=== PATIENT | male | born 1950 | race Caucasian/White ===

== ENCOUNTER → 2018-01-29 | Outpatient (CLI) | payer BC, MEDICARE ==
[~2018-01-29] MED LIST: ? B/P MED; ATIVAN0.5 MG PO; COMPAZINE10 MG PO; ENOXAPARIN30 MG/0.3; ERYTHROMYCIN E3.5 G1 OP; FLOMAX0.4 MG PO; HYDROCODONE-APA1 TA1 PO; NAPROXEN500 MG PO; NORCO 5-325 TA1 EACH PO; NORVASC5 MG PO; NYSTATIN 1100000 U/M SWISH&SPIT; ONDANSETRON HCL4 M2 PO; PEPCID20 MG PERTUBE; PROMETHAZI6.25 MG/5 PERTUBE; QUINAPRIL HCL20 MG PO
--- NOTE | 2018-02-09 21:39 | ONC ---
[place] [address] RADIATION ONCOLOGY NOTE Name: DESIREORA Tone Room: [facility]#: [id number] Admission: 01/29/18 Attend Phys: Jarett Hodge MD Discharge: Date of : 50 Report #: [id number] THIS REPORT FOR: //name// CC: Yonny Rosario MD DATE OF PROCEDURE: 01/29/2018 REFERRING PHYSICIANS: Include: 1. Nataliia Dumont. 2. Ismael Valadez DO 3. Yonny Soto MD 4. Dr. Quevedo. 5. Kulwinder Valencia DO [facility] phone is [phone]. PRIMARY SITE AND HISTOPATHOLOGY: The patient received chemoradiotherapy for a stage SALVADOR base of tongue cancer. The patient completed radiation therapy on 09/14/2016. PROCEDURE: Nasopharyngolaryngoscopy. FINDINGS: On nasopharyngolaryngoscopy, after administration of a small amount of 2% viscous lidocaine orally and 2% viscous lidocaine via the right nostril using a cotton swab, there were no visible lesions in the nasopharynx and no visible lesions in the posterior oropharynx. There were no visible lesions involving the base of tongue. The true vocal cords were normally mobile bilaterally without any visible lesions. There was no evidence of head and neck cancer. Thank you for allowing me to participate in the care of this patient. <ELECTRONICALLY SIGNED> By: Jarett Hodge MD 02/09/18 2139 1121 1330Jarett Hodge MD /nt
--- NOTE | 2018-02-09 22:28 | ONC ---
[place] [address] RADIATION ONCOLOGY NOTE Name: ORA PHIPPS Room: [facility]#: [id number] Admission: 01/29/18 Attend Phys: Jarett Hodge MD Discharge: Date of : 50 Report #: [id number] THIS REPORT FOR: //name// CC: Dr. Jarett Rosario MD DATE OF SERVICE: 01/29/2018 REFERRING PHYSICIANS: Include Yonny Soto MD; Josh Quevedo DMD; Kulwinder Valencia DO; Ismael Valadez MD; and Nataliia Dumont MD. [facility] phone is [phone]. PRIMARY SITE AND HISTOPATHOLOGY: The patient received chemoradiotherapy for a stage SALVADOR base of tongue cancer and completed radiation therapy on 09/14/2016. INTERVAL NOTE: The patient felt like he was eating well. He is eating foods such as sandwiches and chicken. He does sometimes have to take more fluid with it because of the xerostomia. He sometimes bites his left cheek rarely, and that has improved. He uses [facility] for dental care. He takes pilocarpine, maybe once every 3 or 4 days. MEDICATIONS: [employer]ogel, pilocarpine, 25 mcg of levothyroxine per day and quinapril. SOCIAL HISTORY: Cigarettes, he does not smoke. REVIEW OF SYSTEMS: RESPIRATORY: The patient was not short of breath during his appointment. MUSCULOSKELETAL: He has good range of motion of his upper extremities. PHYSICAL EXAMINATION: VITAL SIGNS: The patient weighs 191 pounds on 01/29/2018, 187.6 pounds on 08/12/2017. On 01/29/2018 blood pressure was 129/85, pulse 53, respirations 20, oxygen saturation 98%. LYMPH NODES: He had no palpable cervical or supraclavicular lymphadenopathy. HEAD, EYES, EARS, NOSE AND THROAT EXAM: Mouth had no suspicious visible lesions or suspicious palpable lesions. On nasopharyngolaryngoscopy, after administration of 2% viscous lidocaine orally and 2% viscous lidocaine to the right nostril with a cotton swab, there were no visible lesions in the nasopharynx. There were no visible lesions in the posterior oropharynx. The base of tongue had no visible lesions. The true vocal cords were normally mobile bilaterally with no visible lesions. HEART: Had a regular rate and rhythm without murmur. LUNGS: [place] [address] RADIATION ONCOLOGY NOTE Name: ORA PHIPPS Room: [facility]#: [id number] Admission: 01/29/18 Attend Phys: Jarett Hodge MD Discharge: Date of : 50 Report #: [id number] clear to auscultation. LABORATORY DATA: From 11/18/2017 hemoglobin 14; platelets 166,000; white blood cell count 5.0. Sodium 140, potassium 3.8, BUN 12, creatinine 1.1. TSH 7.67, free T4 0.8. RADIOLOGIC IMAGING: Neck and chest CT on 11/18/2017 showed post-therapeutic changes in the neck. There is no evidence of thoracic metastatic disease. ASSESSMENT AND PLAN: 1. History of head and neck cancer- There is no evidence of head and neck cancer at this time. The patient is scheduled for CT scans and lab work on 06/09/[address] Dumont. He is scheduled for a follow up appointment with Dr. Dumont on 06/12/2018. The patient was asked to schedule a follow up appointment to see me around 07/2018. 2. Hypothyroidism. The patient was given a refill for 25 mcg levothyroxine, and he was given a requisition to have a TSH checked at this time and then possibly around around 05/2018. He was asked to schedule a follow up appointment with me in 07/2018. 3. Dental care- The patient was given a refill for [employer] Pro-Gel to use for his teeth. 4. Xerostomia- The patient was given a refill for pilocarpine. 5. Calcified coronary artery disease- He was referred, in the past, to his primary care physician to manage that issue. Thank you for allowing me to participate in the care of this patient. <ELECTRONICALLY SIGNED> By: Jarett Hodge MD 02/09/18 2228 1301 1533Dzaid Hodge MD /nt
== END | disposition home or self-care (01) ==
LOC: M.RTH 11-13 09:30
DX: Z85.810 Personal history of malignant neoplasm of tongue (principal); E03.9 Hypothyroidism, unspecified; K11.7 Disturbances of salivary secretion; I25.10 Atherosclerotic heart disease of native coronary artery without angina pectoris; Z79.899 Other long term (current) drug therapy; Z79.891 Long term (current) use of opiate analgesic; Z98.890 Other specified postprocedural states

== ENCOUNTER → 2018-08-06 | Outpatient (CLI) | payer BC, MEDICARE ==
--- NOTE | 2018-08-17 22:11 | PROC ---
[address] [address] PROCEDURE REPORT Name: DESIREORA Tone Room: [facility]#: [id number] Admission: 08/06/18 Attend Phys: Jarett Hodge MD Discharge: Date of : 50 Report #: [id number] THIS REPORT FOR: //name// CC: Jarett Rosario MD DATE OF PROCEDURE: 08/06/2018 REFERRING PHYSICIANS: Yonny Soto MD; Dr. Quevedo; Kulwinder Valencia DO; Ismael Valadez DO; Nataliia Dumont MD. [facility] phone is [phone]. PRIMARY SITE AND HISTOPATHOLOGY: The patient received chemoradiotherapy for a stage SALVADOR base of tongue cancer. The patient completed radiation therapy on 09/14/2016. PROCEDURE: Nasopharyngolaryngoscopy. FINDINGS: On nasopharyngolaryngoscopy, after administration of a small amount of 2% viscous lidocaine orally and 2% viscous lidocaine via the right nostril using a cotton swab, there were no visible lesions in the nasopharynx and no visible lesions in the posterior oropharynx and no visible lesions involving the base of tongue. The true vocal cords were normally mobile bilaterally without any visible lesions. There was no evidence of head and neck cancer. Thank you for allowing me to participate in the care of this patient. <ELECTRONICALLY SIGNED> By: Jarett Hodge MD 08/17/18 2211 1248 2039Jraett Hodge MD /nt
--- NOTE | 2018-08-17 22:27 | ONC ---
[place] [address] RADIATION ONCOLOGY NOTE Name: ORA PHIPPS Room: [facility]#: [id number] Admission: 08/06/18 Attend Phys: Jarett Hodge MD Discharge: Date of : 50 Report #: [id number] THIS REPORT FOR: //name// CC: Jarett Rosario MD DATE OF SERVICE: 08/06/2018 REFERRING PHYSICIANS: Include Dr. Ismael Valadez; Yonny Soto MD; Josh Quevedo DMD; Kulwinder Valencia DO; and Nataliia Dumont MD. [facility] phone is [phone]. PRIMARY SITE AND HISTOPATHOLOGY: The patient received chemoradiotherapy for a stage SALVADOR base of tongue cancer and he completed radiation therapy on 09/14/2016. INTERVAL NOTE: The patient felt like he was eating well. He has a good appetite. He tends to eat moist foods such as chicken with gravy. In the past, he has been on amoxicillin for a sinus infection. He still has issues with his bite since he sometimes bites his buccal mucosa when he chews food. He uses pilocarpine intermittently for xerostomia and uses dental care Pro-Gel fluoride gel for dental care. MEDICATIONS: Include dental care Pro-Gel, pilocarpine, levothyroxine, quinapril, and Flomax. SOCIAL HISTORY: Cigarettes: he does not smoke. REVIEW OF SYSTEMS: RESPIRATORY: The patient was not short of breath during his appointment. MUSCULOSKELETAL: He has good range of motion of his upper extremities. PHYSICAL EXAMINATION: VITAL SIGNS: The patient weighed 205.6 pounds on 08/06/2018, 191 pounds on 01/29/2018. On 08/06/2018, blood pressure 130/87, pulse 65, respirations 18, oxygen saturation 96%. LYMPH NODES: The patient had no palpable cervical or supraclavicular lymphadenopathy. HEAD, EYES, EARS, NOSE AND THROAT: Mouth had no suspicious visible lesions or suspicious palpable lesions. On nasopharyngolaryngoscopy, after administration of 2% viscous lidocaine orally and 2% viscous lidocaine to the right nostril with a cotton swab, there were no visible lesions in the nasopharynx and no visible lesions in the posterior oropharynx. The Base [place] [address] RADIATION ONCOLOGY NOTE Name: ORA PHIPPS Room: [facility]#: [id number] Admission: 08/06/18 Attend Phys: Jarett Hdoge MD Discharge: Date of : 50 Report #: [id number] True vocal cords were normally mobile bilaterally with no visible lesions. HEART: Had a regular rate and rhythm without murmur. LUNGS: were clear to auscultation. LABORATORY DATA: From 06/09/2018: Hemoglobin 14.7, platelets 152,000, white blood cell count 5.6. Sodium 138, potassium 4.0, BUN 18, creatinine 1.09 and TSH at that time was elevated at 5.31. So, his levothyroxine was increased from 25 mcg per day to 50 mcg per day. RADIOLOGIC DATA: The patient had a chest CT on 06/09/2018 and also had a neck CT and that showed no recurrent mass or lymphadenopathy or metastatic disease. ASSESSMENT AND PLAN: 1. History of head and neck cancer- There is no evidence of head and neck cancer at this time. The patient had scans ordered by his medical oncologist, Dr. Dumont, on 03/10/2019. He has an appointment with his medical oncologist on 03/12/2019 and so the patient was asked to schedule an follow up appointment with me around 04/2019 or 05/2019. 2. Hypothyroidism- The patient was given a refill for 50 mcg of levothyroxine, which was increased after his last TSH was slightly elevated and an order will be written to add the TSH to the labs that he is having on 03/10/2019. He will be asked to schedule a follow up appointment with me around 04/2019 or 05/2019. 3. Dental care- The patient was given a refill for dental care Pro-Gel fluoride gel for his teeth. 4. Xerostomia- The patient was given a refill for pilocarpine. 5. Dental bite- The patient will be referred to the dentist, Dr. Wing Yañez, to see if he has any suggestions with the patient's issues of biting on his buccal mucosa. Thank you for allowing me to participate in the care of this patient. <ELECTRONICALLY SIGNED> By: Jarett Hodge MD 08/17/18 2227 1253 2101Dzaid Hodge MD /nt
== END ==
LOC: M.RTH 01:31
DX: Z08 Encounter for follow-up examination after completed treatment for malignant neoplasm (principal); E03.9 Hypothyroidism, unspecified; K11.7 Disturbances of salivary secretion; Z85.89 Personal history of malignant neoplasm of other organs and systems

== ENCOUNTER → 2019-04-10 | Outpatient (CLI) | payer BC, MEDICARE ==
--- NOTE | ~2019-04-10 | ONC ---
[place] [address] RADIATION ONCOLOGY NOTE Name: ORA PHIPPS Room: [facility]#: [id number] Admission: 04/10/19 Attend Phys: Jarett Hodge MD Discharge: Date of : 50 Report #: [id number] THIS REPORT FOR: //name// CC: Jarett Valadez DATE OF SERVICE: 04/10/2019 REFERRING PHYSICIANS: Include Dr. Ismael Valadez, Dr. Yonny Soto, Josh Quevedo DMD; Kulwinder Valencia DO; Nataliia Dumont MD. [facility] phone is [phone]. PRIMARY SITE AND HISTOPATHOLOGY: The patient received chemoradiotherapy for stage 4A base of tongue cancer and completed radiation therapy on 09/14/2016. INTERVAL NOTE: The patient is eating a regular diet. He says he eats food such as steak and chicken. He applies the fluoride to his teeth with a brush. He takes pilocarpine periodically for xerostomia. MEDICATIONS: Include dental gel, pilocarpine, levothyroxine at 75 mcg per day, is increased from 50 mcg to 75 mcg per day on 03/10/2019, quinapril, and Flomax. SOCIAL HISTORY: Cigarettes: The patient does not smoke cigarettes. REVIEW OF SYSTEMS: RESPIRATORY: The patient was not short of breath during his appointment. MUSCULOSKELETAL: He has good range of motion of his upper extremities. PHYSICAL EXAMINATION: VITAL SIGNS: The patient weighed 214.2 pounds on 04/10/2019. He was 205.6 pounds 08/06/2018 and on 04/10/2019 blood pressure is 134/88, pulse 59, respirations 18, oxygen saturation 95%. LYMPH NODES: He had no palpable cervical or supraclavicular lymphadenopathy. HEAD, EYES, EARS, NOSE, AND THROAT: Mouth had no suspicious visible lesions or suspicious palpable lesions. On nasopharyngolaryngoscopy, after administration of 2% viscous lidocaine orally, 2% viscous lidocaine to the right nostril with a cotton swab, there were no visible lesions in the nasopharynx, no visible lesions in the posterior pharynx. The base of tongue had no visible lesions. True vocal cords were normally mobile bilaterally with no visible lesions. HEART: Had a regular rate and rhythm without murmur. LUNGS: Clear to auscultation. LABORATORY DATA: From 03/10/2019, sodium 139, potassium 4.2, BUN 20, creatinine 1.24 and hemoglobin 14, platelets 221,000, white blood cell 6.3. TSH 8.43, free T4 was 0.9, and his levothyroxine was increased to 75 mcg per day [place] [address] RADIATION ONCOLOGY NOTE Name: ORA PHIPPS Room: [facility]#: [id number] Admission: 04/10/19 Attend Phys: Jarett Hodge MD Discharge: Date of : 50 Report #: [id number] result. RADIOLOGIC DATA: From 03/10/2019, the neck showed no recurrent mass or lymphadenopathy and the chest showed no thoracic metastatic disease. He knows that he had a left perinephric hematoma, which is thought to be too low, lithotripsy had at that time. ASSESSMENT AND PLAN: 1. History of head and neck cancer. There is no evidence of head and neck cancer at this time. The patient is scheduled for comprehensive metabolic panel, complete blood count, TSH, and a neck and chest CT by his medical oncologist, Dr. Dumont on 10/09/2019; and he is scheduled to see her in 10/12/2019. The patient was asked to follow up with me may be around 11/2019. 2. Hypothyroidism. The patient's levothyroxine was increased from 50 mcg per day to 75 mcg per day since his TSH was elevated in 02/2019 and a repeat TSH was ordered in 09/2019. The patient was asked to follow up with me around November 2019. 3. Dental care. The patient was given a refill for dental gel to use for his teeth. 4. Xerostomia. The patient was given a refill for pilocarpine. Thank you for allowing me to participate in the care of this patient. By: 1609 [id number] Hodge MD /earnestine
--- NOTE | ~2019-04-10 | ONC ---
[address] [address] RADIATION ONCOLOGY NOTE Name: DESIREORA JOE Room: [facility]#: [id number] Admission: 04/10/19 Attend Phys: Jarett Hodge MD Discharge: Date of : 50 Report #: [id number] THIS REPORT FOR: //name// CC: Jarett Valadez DATE OF SERVICE: 04/10/2019 REFERRING PHYSICIANS: Dr. Ismael Valadez, Dr. Nataliia Dumont, Dr. Vasquez, Dr. Soto, Dr. Valencia and Dr. Quevedo. [facility] phone is [phone]. PRIMARY SITE AND HISTOPATHOLOGY: The patient received chemoradiotherapy for stage 4A base of tongue cancer. The patient completed radiation therapy on 09/14/2016. FINDINGS: On nasopharyngolaryngoscopy, after administration of a small amount of 2% viscous lidocaine orally, 2% viscous lidocaine via the right nostril using a cotton swab, there were no visible lesions on the nasopharynx. No visible lesions in the posterior pharynx. No visible lesions involving the base of tongue. True vocal cords were normally mobile bilaterally without any visible lesions. There was no evidence of head or neck cancer. Thank you for allowing me to participate in the care of this patient. By: 1605 MD los Milligan
== END ==
LOC: M.RTH 09:00
DX: Z08 Encounter for follow-up examination after completed treatment for malignant neoplasm (principal); E03.9 Hypothyroidism, unspecified; K11.7 Disturbances of salivary secretion; Z85.810 Personal history of malignant neoplasm of tongue; Z85.89 Personal history of malignant neoplasm of other organs and systems

== ENCOUNTER → 2020-05-27 | Outpatient (CLI) | payer MEDICARE ==
--- NOTE | 2020-06-12 19:18 | ONC ---
[place] [address] RADIATION ONCOLOGY NOTE Name: ORA PHIPPS Room: [facility]#: [id number] Admission: 05/27/20 Attend Phys: Jarett Hodge MD Discharge: Date of : 50 Report #: [id number] THIS REPORT FOR: //name// CC: Jarett Quevedo DMD DATE OF SERVICE: 05/27/2020 RADIATION ONCOLOGY PROCEDURE NOTE REFERRING PHYSICIANS: Nataliia Dumont MD; Ismael Valadez DO; Bijan Vasquez MD; Rayshawn Escobar MD; Ludwig Barone MD; Josh Quevedo DMD [facility] phone is [phone]. PRIMARY SITE AND HISTOPATHOLOGY: The patient received chemoradiotherapy for a stage SALVADOR base of tongue cancer. The patient completed radiation therapy on 09/14/2016. FINDINGS: On nasopharyngolaryngoscopy, after administration of a small amount of 2% viscous lidocaine orally and 2% viscous lidocaine via the right nostril, using a cotton swab. There were no visible lesions in the nasopharynx. There were no visible lesions in the posterior oropharynx. There were no visible lesions involving the base of tongue. The true vocal cords were normally mobile bilaterally without any visible lesions. There was no evidence of head and neck cancer. Thank you for allowing me to participate in the care of this patient. <ELECTRONICALLY SIGNED> By: Jarett Hodge MD 06/12/20 1918 1045 1103Dzaid Hodge MD /nt
--- NOTE | 2020-06-12 19:39 | ONC ---
[place] [address] RADIATION ONCOLOGY NOTE Name: ORA PHIPPS Room: [facility]#: [id number] Admission: 05/27/20 Attend Phys: Jarett Hodge MD Discharge: Date of : 50 Report #: [id number] THIS REPORT FOR: //name// CC: Jarett Escobar MD DATE OF SERVICE: 05/27/2020 RADIATION ONCOLOGY FOLLOWUP NOTE REFERRING PHYSICIANS: Nataliia Dumont MD; Ismael Valadez MD; Yonny Soto MD; Josh Quevedo DMD; Bijan Vasquez MD. [facility] phone is [phone]. PRIMARY SITE AND HISTOPATHOLOGY: The patient received chemoradiotherapy for a stage SALVADOR base of tongue cancer and completed radiation therapy on 09/14/2016. INTERVAL NOTE: The patient is eating a regular diet. He likes to eat foods such as steak and chicken. He said he receives fluoride from his dentist and he applies fluoride to his teeth with a toothbrush. He takes pilocarpine periodically for xerostomia. MEDICATIONS: Pilocarpine; levothyroxine, which was increased from 75 mcg per day to 88 mcg per day; quinapril and Flomax. SOCIAL HISTORY: Cigarettes: The patient does not smoke cigarettes. REVIEW OF SYSTEMS: RESPIRATORY: The patient was not short of breath during his appointment. MUSCULOSKELETAL: He has good range of motion of his upper extremities. PHYSICAL EXAMINATION: VITAL SIGNS: The patient weighed 230.2 pounds on 05/27/2020 and 214.2 pounds on 04/10/2019. On 05/27/2020, blood pressure was 135/83, pulse 59, respirations 16, oxygen saturation 97%, temperature 98.7 degrees Fahrenheit. LYMPH NODES: He had no palpable cervical or supraclavicular lymphadenopathy. HEAD, EYES, EARS, NOSE AND THROAT EXAMINATION: Mouth had no suspicious visible lesions or suspicious palpable lesions. On nasopharyngolaryngoscopy, after administration of 2% viscous lidocaine orally and 2% viscous lidocaine to the right nostril with a cotton swab, there [place] [address] RADIATION ONCOLOGY NOTE Name: DESIREORA HERNANDEZ JOE Room: [facility]#: [id number] Admission: 05/27/20 Attend Phys: Jarett Hodge MD Discharge: Date of : 50 Report #: [id number] nasopharynx. There were no visible lesions in the posterior oropharynx. The base of tongue had no visible lesions. The true vocal cords were normally mobile bilaterally with no visible lesions. HEART: Had a regular rate and rhythm without murmur. LUNGS: were clear to auscultation. LABORATORY DATA: The patient's TSH was 3.23, which was within normal limits with him taking 88 mcg of levothyroxine per day. Sodium was 140, potassium 3.7, BUN 15 and creatinine 1.12. RADIOLOGIC DATA: The patient had a neck and chest CT on 10/09/2019, ordered by his medical oncologist, Dr. Dumont, and the chest CT revealed no thoracic metastatic disease and a neck CT revealed post-treatment changes with no recurrent neck mass or lymphadenopathy. ASSESSMENT AND PLAN: 1. History of head and neck cancer- There is no evidence of head and neck cancer at this time. The patient is scheduled for lab work and a neck and chest CT by his medical oncologist, Dr. Dumont on 10/11/2020 and he has an appointment with Dr. Dumont on 10/13/2020. A complete metabolic panel and TSH was ordered in about 1 year and the patient was asked to schedule a followup appointment to see me afterwards. 2. Hypothyroidism- The patient's TSH was within normal limits with him taking 88 mcg of levothyroxine per day. So, he was given a refill for 88 mcg of levothyroxine per day and a TSH was ordered in 1 year and the patient was asked to schedule a follow up appointment to see me afterwards. 3. Dental care- The patient receives his fluoride gel from his dentist and he continues to follow up with his dentist for dental care. 4. Xerostomia- The patient was given a refill for pilocarpine. Thank you for allowing me to participate in the care of this patient. <ELECTRONICALLY SIGNED> By: Jarett Hodge MD 06/12/20 1939 1051 1111Jarett Hodge MD /nt
== END ==
LOC: M.RTH 12-18 10:45
PROVIDERS: ATTEND Radiology Radiation Oncology
DX: Z08 Encounter for follow-up examination after completed treatment for malignant neoplasm (principal); Z85.810 Personal history of malignant neoplasm of tongue; Z92.21 Personal history of antineoplastic chemotherapy

== ENCOUNTER 2021-02-11 08:02 | Inpatient (IN) | payer MEDICARE ==
[~2021-02-11] VITALS: Ht 177.8 cm; Wt 104.3 kg
[2021-02-11 08:18] LABS: URINE BLOOD TRACE (Negative); URINE CLARITY CLEAR; URINE COLOR YELLOW; URINE GLUCOSE-RANDOM NEGATIVE (Negative); URINE KETONES 1+ (Negative); URINE LEUKOCYTES NEGATIVE (Negative); URINE NITRITE NEGATIVE (Negative); URINE PROTEIN 1+ (Negative); URINE SPECIFIC GRAVITY >= 1.030 (1.005-1.030)
[2021-02-11 08:20] LABS: ICTOTEST (BILI CONFIRMATORY) Negative (Negative); URINE BILIRUBIN 1+ (Negative)
[2021-02-11] MEDS ORDERED: LEVO-T100 MCG PO (08:21)
[2021-02-11] MEDS ORDERED: CIPRO500 M1 PO (08:21)
[2021-02-11] MEDS ORDERED: NORVASC5 MG PO (08:21)
[2021-02-11] MEDS ORDERED: FLOMAX0.4 MG PO (08:22)
[2021-02-11] MEDS ORDERED: HYDROCHLOROTH12.5 M2 PO (08:22)
[2021-02-11 08:39] LABS: ABSOLUTE BASOPHILS 0.1 thou/uL (0.0-0.2); ABSOLUTE EOSINOPHILS 0.2 thou/uL (0.0-0.7); ABSOLUTE MONOCYTES 1.5 thou/uL (0.0-1.2); ABSOLUTE NEUTROPHILS 12.8 thou/uL (1.6-8.1); BASOPHILS 0.4 %; EOSINOPHILS 1.2 %; HEMATOCRIT 43.2 % (42.0-52.0); HEMOGLOBIN 14.7 gm/dL (14.0-18.0); LYMPHOCYTES 6.2 %; MCH 31.7 pg (26.0-34.0); MCV 93.3 fL (80.0-100.0); MONOCYTES 9.9 %; MPV 7.9 fl. (7.2-11.1); NUCLEATED RBCS 0 /100WBC; PLATELET COUNT* 140 thou/uL (150-400); POLYS 82.3 %; RBC 4.63 mil/uL (4.50-6.00); RDW-CV 14.3 % (10.5-14.5); WBC 15.5 thou/uL (4.0-11.0)
[2021-02-11 08:49] LABS: CALCIUM 8.7 mg/dL (8.5-10.1); CREATININE 1.1 mg/dL (0.6-1.3); POTASSIUM 3.1 mmol/L (3.5-5.1)
[2021-02-11 08:53] LABS: ALBUMIN 3.4 g/dL (3.4-5.0); TOTAL PROTEIN 7.3 g/dL (6.4-8.2)
[2021-02-11 12:46] VITALS: BP 127/82
[2021-02-11 13:00] VITALS: BP 126/90
[2021-02-11 16:39] VITALS: BP 124/83
[2021-02-11 20:45] VITALS: BP 138/82
[2021-02-12 08:00] VITALS: BP 129/81
--- NOTE | 2021-02-12 12:25 | EKG ---
[place] [address] ELECTROCARDIOGRAM REPORT Name: DESIREORA CHOUDHURYO Room: [address] ADM IN .R.#: [id number] Admission: 02/11/21 Attend Phys: Aman Schwartz Discharge: Date of : 50 Date of Service: 02/11/21 0822 Report #: [id number] THIS REPORT FOR: //name// [facility] ED Test Date: 2021-02-11 Test Time: 08:22:38 Pat Name: ORA PHIPPS Department: Room: [facility] Gender: M Financial Services Assistant: LAWRENCE : 1950 Requested By: Michael Madrigal Order Number: [id number] MD: Rayshawn Francis Measurements Intervals Olds Rate: 80 P: 50 IL: 158 QRS: -1 QRSD: 95 T: 8 QT: 365 QTc: 421 Interpretive Statements Sinus rhythm Borderline T abnormalities, inferior leads Compared to ECG 12/31/2014 10:00:26 T-wave abnormality now present Electronically Signed On 02-12-2021 12:25:43 CDT by Rayshawn Francis [email or web address] <ELECTRONICALLY SIGNED> By: Susy Francis MD, [facility] 02/12/21 1225 1 1 Susy Francis MD, [facility] /EPI
[2021-02-12 15:29] VITALS: BP 136/85
[2021-02-12 23:00] VITALS: BP 145/85
[2021-02-13 04:50] LABS: HEMATOCRIT 41.1 % (42.0-52.0); HEMOGLOBIN 13.9 gm/dL (14.0-18.0); MCH 31.9 pg (26.0-34.0); MCHC 33.7 g/dL (28.0-37.0); MCV 94.7 fL (80.0-100.0); RBC 4.34 mil/uL (4.50-6.00); WBC 8.6 thou/uL (4.0-11.0)
[2021-02-13 05:00] LABS: CALCIUM 8.5 mg/dL (8.5-10.1); CREATININE 0.9 mg/dL (0.6-1.3); MAGNESIUM 2.2 mg/dL (1.8-2.4); POTASSIUM 3.6 mmol/L (3.5-5.1)
[2021-02-13 08:15] VITALS: BP 142/85
[2021-02-13 16:36] VITALS: BP 140/89
[2021-02-13 20:10] VITALS: BP 174/91
[2021-02-14 04:08] LABS: HEMATOCRIT 39.2 % (42.0-52.0); HEMOGLOBIN 13.5 gm/dL (14.0-18.0); MCH 32.3 pg (26.0-34.0); MCHC 34.5 g/dL (28.0-37.0); MCV 93.5 fL (80.0-100.0); MPV 7.7 fl. (7.2-11.1); RBC 4.19 mil/uL (4.50-6.00); RDW-CV 14.2 % (10.5-14.5); WBC 8.7 thou/uL (4.0-11.0)
[2021-02-14 04:20] LABS: CALCIUM 8.6 mg/dL (8.5-10.1); CREATININE 0.9 mg/dL (0.6-1.3); MAGNESIUM 2.2 mg/dL (1.8-2.4); POTASSIUM 3.5 mmol/L (3.5-5.1)
[2021-02-14 09:00] VITALS: BP 145/81
[2021-02-14] MEDS ORDERED: CEFUROXIME250 MG PO (09:11)
[2021-02-14] MEDS ORDERED: LACTOBACILLUS1 EACH PO (09:11)
[2021-02-14 12:12] VITALS: BP 145/81
== END 2021-02-14 12:32 | disposition home or self-care (01) | DRG 728 ==
LOC: M.ERS 08:02 → M.TBA-ER 11:42 → M.ORTHSURG 12:47
PROVIDERS: Emergency Medicine; Internal Medicine; ADMIT Internal Medicine; ATTEND Internal Medicine
DX: N41.0 Acute prostatitis (principal); K56.7 Ileus, unspecified; N13.8 Other obstructive and reflux uropathy; R33.8 Other retention of urine; E03.9 Hypothyroidism, unspecified; E87.6 Hypokalemia; N40.1 Benign prostatic hyperplasia with lower urinary tract symptoms; D72.829 Elevated white blood cell count, unspecified; K57.30 Diverticulosis of large intestine without perforation or abscess without bleeding; Z20.822 Contact with and (suspected) exposure to COVID-19; Z85.810 Personal history of malignant neoplasm of tongue; Z90.49 Acquired absence of other specified parts of digestive tract; Z92.21 Personal history of antineoplastic chemotherapy; Z92.3 Personal history of irradiation; Z79.899 Other long term (current) drug therapy

== ENCOUNTER 2021-05-08 11:21 | Emergency (ER) | payer MEDICARE ==
[~2021-05-08] VITALS: Ht 177.8 cm; Wt 99.8 kg
[~2021-05-08 11:21] MED LIST changes: +CEFUROXIME250 MG PO; +CIPRO500 M1 PO; +HYDROCHLOROTH12.5 M2 PO; +LACTOBACILLUS1 EACH PO; +LEVO-T100 MCG PO
[2021-05-08 14:03] LABS: URINE BILIRUBIN NEGATIVE (Negative); URINE BLOOD 3+ (Negative); URINE CLARITY CLEAR; URINE COLOR YELLOW; URINE GLUCOSE-RANDOM NEGATIVE (Negative); URINE KETONES NEGATIVE (Negative); URINE LEUKOCYTES-REFLEX NEGATIVE (Negative); URINE NITRITE-REFLEX NEGATIVE (Negative); URINE PROTEIN NEGATIVE (Negative); URINE SPECIFIC GRAVITY >= 1.030 (1.005-1.030); URINE UROBILINOGEN 0.2 E.U./dl (0.2-1.0)
[2021-05-08 14:26] LABS: ABSOLUTE BASOPHILS 0.1 thou/uL (0.0-0.2); ABSOLUTE EOSINOPHILS 0.2 thou/uL (0.0-0.7); ABSOLUTE LYMPHOCYTES 1.5 thou/uL (0.8-5.3); ABSOLUTE MONOCYTES 0.8 thou/uL (0.0-1.2); ABSOLUTE NEUTROPHILS 3.8 thou/uL (1.6-8.1); BASOPHILS 0.8 %; EOSINOPHILS 2.9 %; HEMATOCRIT 44.8 % (42.0-52.0); HEMOGLOBIN 15.9 gm/dL (14.0-18.0); LYMPHOCYTES 24.3 %; MCH 32.6 pg (26.0-34.0); MCHC 35.6 g/dL (28.0-37.0); MCV 91.5 fL (80.0-100.0); MONOCYTES 12.8 %; MPV 7.8 fl. (7.2-11.1); NUCLEATED RBCS 0 /100WBC; PLATELET COUNT* 181 thou/uL (150-400); POLYS 59.2 %; RDW-CV 14.3 % (10.5-14.5); WBC 6.4 thou/uL (4.0-11.0)
[2021-05-08 14:28] LABS: BACTERIA-REFLEX 1-9 Few /HPF (None Seen); CASTS None Seen /LPF (None Seen); SQUAMOUS 0-3 Few /LPF (0-3); URINE RBC >20 Many /HPF (0-2); URINE WBC-REFLEX 0-5 Rare /HPF (0-5)
[2021-05-08 14:29] LABS: CRYSTALS None Seen /LPF (None Seen)
[2021-05-08 14:29] LABS: CALCIUM 9.1 mg/dL (8.5-10.1); CREATININE 1.1 mg/dL (0.6-1.3); POTASSIUM 3.9 mmol/L (3.5-5.1)
[2021-05-08 14:33] LABS: TOTAL BILIRUBIN 0.9 mg/dL (<0.1-1.0)
[2021-05-08] MEDS ORDERED: CEFUROXIME250 MG PO (16:32)
[2021-05-08] MEDS ORDERED: HYDROCODON-ACE1 EAC7 PO (16:42)
[2021-05-08 16:45] VITALS: BP 137/101
== END 2021-05-08 16:46 | disposition home or self-care (01) ==
LOC: M.ERS 11:21
PROVIDERS: Nurse Practitioner Family
DX: R31.9 Hematuria, unspecified (principal); R35.0 Frequency of micturition; R10.32 Left lower quadrant pain; Z87.442 Personal history of urinary calculi

== ENCOUNTER → 2021-07-20 | Outpatient (CLI) | payer MEDICARE ==
[~2021-07-20] MED LIST changes: +HYDROCODON-ACE1 EAC7 PO
== END ==
LOC: M.LAB 05:51
PROVIDERS: ATTEND Anesthesiology
DX: E87.6 Hypokalemia (principal)

== ENCOUNTER → 2021-07-28 | Outpatient (CLI) | payer MEDICARE | LOC: M.CT 10:38 | PROVIDERS: ATTEND Nurse Practitioner Family | DX: K76.0 Fatty (change of) liver, not elsewhere classified (principal); K76.89 Other specified diseases of liver; K57.30 Diverticulosis of large intestine without perforation or abscess without bleeding; M47.816 Spondylosis without myelopathy or radiculopathy, lumbar region; I77.811 Abdominal aortic ectasia; I25.10 Atherosclerotic heart disease of native coronary artery without angina pectoris; I70.0 Atherosclerosis of aorta; K86.89 Other specified diseases of pancreas; R10.13 Epigastric pain ==